=== PATIENT | female | born 1975 | race African-American/Black ===

== ENCOUNTER 2018-09-19 06:15 | Emergency (ER) | payer OTHER ==
[2018-09-19 06:52] VITALS: BP 129/90; PULSE 70; TEMP 98.2; BMI 32.8
--- NOTE | 2018-09-19 07:41 | PDOC ---
History of Present Illness - General Chief Complaint: Headache Stated Complaint: PAIN Time Seen by Provider: 09/19/18 07:04 History Source: Patient Exam Limitations: No Limitations - History of Present Illness Initial Comments: 09/19/18 07:35 42 yo female pmh of sinusitis and strep throat presents to the ED for 2 weeks of non productive cough, sore throat, sneezing, runny nose, facial pain and right ear pain. Pt denies sick contacts, seeing any other physician for her complaints or trying any medications to alleviate symptoms. Denies LYNN, F/C/N/V, body aches, abdominal pain, changes or difficulty with bowel or bladder habits, CP or SOB. Past History - Past Medical History Allergies/Adverse Reactions: Allergies Allergy/AdvReac Type Severity Reaction Status Date / Time No Known Allergies Allergy Verified 09/19/18 06:51 Home Medications: Ambulatory Orders Amox-Tr/K Cl [Augmentin - 875Mg Tablet] 1 tab PO BID 7 Days #14 tablet 09/19/18 COPD: No - Immunization History Immunization Up to Date: Yes - Suicide/Smoking/Psychosocial Hx Smoking History: Never smoked Have you smoked in the past 12 months: No Information on smoking cessation initiated: No Hx Alcohol Use: No Drug/Substance Use Hx: No Review of Systems - Review of Systems Constitutional: No: Chills, Fever HEENTM: Yes: Ear Pain (right), Throat Pain. No: Ear Discharge, Difficulty Swallowing Respiratory: Yes: Cough. No: Shortness of Breath, Productive cough Cardiac (ROS): No: Chest Pain ABD/GI: No: Abdominal Distended, Constipated, Diarrhea, Nausea, Vomiting : No: Burning, Dysuria, Frequency, Flank Pain Neurological: No: Headache *Physical Exam - Vital Signs Last Vital Signs Temp Pulse Resp BP Pulse Ox 98.2 F 70 20 129/90 98 09/19/18 06:49 09/19/18 06:49 09/19/18 06:49 09/19/18 06:49 09/19/18 06:49 - Physical Exam General Appearance: Yes: Nourished, Appropriately Dressed. No: Apparent Distress HEENT: positive: EOMI, TMs Normal (but pain with probe insertion on right), Pharyngeal Erythema, Sinus Tenderness (frontal and ethmoidal ). negative: Tonsillar Exudate, TM Bulging, TM Dull, TM Erythema, Excessive drooling Neck: negative: Tender, Decreased range of motion Respiratory/Chest: positive: Lungs Clear, Normal Breath Sounds. negative: Accessory Muscle Use, Crackles, Rales, Rhonchi, Wheezing Cardiovascular: positive: Regular Rhythm, Regular Rate, S1, S2. negative: Edema , JVD, Murmur Vascular Pulses: Dorsalis-Pedis (R): 3+, Doralis-Pedis (L): 3+ Gastrointestinal/Abdominal: positive: Flat, Soft. negative: Pulsatile Mass, Distended, Guarding Integumentary: positive: Normal Color, Dry, Warm Neurologic: positive: Fully Oriented, Alert, Normal Mood/Affect Moderate Sedation - Procedure Monitoring Vital Signs: Procedure Monitoring Vital Signs Temperature 98.2 F 09/19/18 06:49 Pulse Rate 70 09/19/18 06:49 Respiratory Rate 20 09/19/18 06:49 Blood Pressure 129/90 09/19/18 06:49 O2 Sat by Pulse Oximetry (%) 98 09/19/18 06:49 Medical Decision Making - Medical Decision Making 09/19/18 09:23 pt well appearing NAD AOX3 2 weeks of s/s. Normal vitals Positive pertinent exam findings are pharyngeal erythema and pain with probe in right ear Rapid strep negative Due to during of symptoms Antibiotics sent to pharmacy and pt will follow up with PCP Pt understands and agrees with plan. *DC/Admit/Observation/Transfer Diagnosis at time of Disposition: Sinusitis Qualifiers: Sinusitis location: frontal Chronicity: subacute Qualified Code(s): J01.10 - Acute frontal sinusitis, unspecified - Discharge Dispostion Disposition: HOME Condition at time of disposition: Stable Decision to Admit order: No - Prescriptions Prescriptions: Amox-Tr/K Cl [Augmentin - 875Mg Tablet] 1 tab PO BID 7 Days #14 tablet - Referrals - Patient Instructions Printed Discharge Instructions: DI for Sinusitis Additional Instructions: Please make appointment with your primary care doctor for follow up within the next 24 -48 hours. Return to the ER for new or concerning symptoms including but not limited to: severe headaches, high fevers, difficulty breathing or swallowing. Take the antibiotic Augmentin as prescribed. Thank you - Post Discharge Activity Forms/Work/School Notes: Back to Work
--- NOTE | 2018-09-19 07:45 | PDOC ---
Attending Attestation - Resident Resident Name: Byron Singh - ED Attending Attestation I have performed the following: I have examined & evaluated the patient, The case was reviewed & discussed with the resident, I agree w/resident's findings & plan, Exceptions are as noted - HPI HPI: 09/19/18 08:44 42 years old no significant past medical history presents emergency department with 2 week history of right-sided facial discomfort right ear pain sinus pain with yellow purulent drainage Patient with history of recurrent sinusitis tried conservative measures at homeif improvement pain is moderate to severe persistent concent no associated headache neck stiffness fever Symptoms are persistent concent no exacerbating or alleviating factors. Insert my ROS statement. - Physicial Exam PE: 09/19/18 08:44 Vitals: Triage Vital signs reviewed General Appearance: no acute distress, well nourished well developed, Head: Atraumatic, Eyes: Pupils equal reactive round, extraocular movement intact Ears: Redness to the right TM Nose: Nares patent bilaterally;no nasal congestion Throat: Posterior oropharynx without erythema, mucous membranes moist, Neck: Supple;No Nucal rigidity Chest Wall: Nontender Cardiac: Regular rate and rhythym, no murmurs, no rubs, no gallops, Lungs: Clear to auscultation bilateral, good air movement bilaterally, Abdomen: Soft, non distended, normal bowel sounds, non tender to palpation Extremities: Full range of motion to all extremities, no cyanosis, clubbing, or edema Psych: normal mood, normal affect - Medical Decision Making 09/19/18 08:46 Well-appearing no apparent distress however given unilateral symptoms with no resolution after 2 weeks and now with drainage and facial pain we'll treat with ten-day course of Augmentin and have patient follow up with her primary care provider this week. Findings, need follow-up and strict return instructions discussed with patient.
== END 2018-09-19 08:05 | disposition home or self-care (01) ==
LOC: JER 06:15
DX: J01.10 Acute frontal sinusitis, unspecified (principal)
CPT/HCPCS: 87070; 87880; 99282-25

== ENCOUNTER 2019-01-12 12:54 | Emergency (ER) | payer OTHER ==
[2019-01-12 13:04] VITALS: BP 113/78; PULSE 78; TEMP 98; BMI 29.0
[2019-01-12] MEDS ORDERED: IBUPROFEN 400 MG TABLET (FP) PO ONE ×2 (13:09→13:12)
--- NOTE | 2019-01-12 13:28 | PDOC ---
History of Present Illness - General Chief Complaint: Injury Stated Complaint: LT THUMB INJURY Time Seen by Provider: 01/12/19 13:05 History Source: Patient Exam Limitations: No Limitations Past History - Past Medical History Allergies/Adverse Reactions: Allergies Allergy/AdvReac Type Severity Reaction Status Date / Time No Known Allergies Allergy Verified 09/19/18 06:51 Home Medications: Ambulatory Orders NK [No Known Home Medication] 01/12/19 COPD: No - Immunization History Immunization Up to Date: Yes - Suicide/Smoking/Psychosocial Hx Smoking History: Never smoked Have you smoked in the past 12 months: No Hx Alcohol Use: No Drug/Substance Use Hx: No *Physical Exam - Vital Signs Last Vital Signs Temp Pulse Resp BP Pulse Ox 98 F 78 16 113/78 99 01/12/19 13:01 01/12/19 13:01 01/12/19 13:01 01/12/19 13:01 01/12/19 13:01 - Physical Exam General Appearance: No: Apparent Distress Comments:: 01/12/19 13:24 BUE pulses intact Musculoskeletal: positive: Other (+Swelling of L thumb, pain with abduction and extension of thumb, no deformity of thumb noted, no snuffbox tenderness) Extremity: positive: Normal Capillary Refill Integumentary: positive: Normal Color. negative: Ecchymosis, Bruising Neurologic: positive: Alert, Normal Mood/Affect. negative: Numbness Procedures - Splinting Splint Location: Left: Hand Pre-Proc Neuro Vasc Exam: normal Pre-Made Type: velcro Hand-Made Type: orthoglass Splint Type: Yes: Thumb Spica Post-Proc Neuro Vasc Exam: normal Sling: No Complications: No ED Treatment Course - RADIOLOGY Radiology Studies Ordered: Category Date Time Status FINGER(S) LEFT [RAD] Stat Radiology 01/12/19 13:09 Ordered - Medications Given in the ED: ED Medications Discontinued Medications Generic Name Dose Route Start Last Admin Trade Name Freq PRN Reason Stop Dose Admin Ibuprofen 800 mg 01/12/19 13:09 01/12/19 13:15 Motrin - PO 01/12/19 13:10 800 mg ONCE ONE Administration Medical Decision Making - Medical Decision Making 43 y/o F with no sig pmh presents with L thumb injury after getting her thumb bent backward while working at her job (works at [employer]). Injury occurred 2 days ago. Denies other trauma. Concern for gamekeeper's thumb Plan: L thumb xray to r/o fracture, Motrin 01/12/19 13:26 L thumb xray negative Placed in thumb spica splint due to concern for UCL injury Will refer to ortho 01/12/19 13:53 *DC/Admit/Observation/Transfer Diagnosis at time of Disposition: Thumb injury Qualifiers: Encounter type: initial encounter Laterality: left Qualified Code(s): S69.92XA - Unspecified injury of left wrist, hand and finger(s), initial encounter - Discharge Dispostion Disposition: HOME Condition at time of disposition: Stable Decision to Admit order: No - Referrals Referrals: Chioma Deleon MD [Primary Care Provider] - 2 Days Raymond López MD [Staff Physician] - 2 Days - Patient Instructions Printed Discharge Instructions: Ulnar Collateral Ligament Sprain of Thumb Additional Instructions: Thank you for choosing [facility], [place]. It was a pleasure taking care of you. Your xray was negative for fracture However, there is concern for ligament injury of thumb for which a splint was placed. You were referred to orthopedics for evaluation Take Motrin 600 mg every 6 hours by mouth as needed for mild to moderate pain. Take Motrin with food. Return to the Emergency Department if your symptoms worsen or persist or have other concerning symptoms. - Post Discharge Activity
== END 2019-01-12 14:05 | disposition home or self-care (01) ==
LOC: JERFT 12:54
PROC: 2W3HX1Z Immobilization of Left Thumb using Splint (ICD-10-PCS; principal; 2019-01-12)
DX: S69.82XA Other specified injuries of left wrist, hand and finger(s), initial encounter (principal); X50.1XXA Overexertion from prolonged static or awkward postures, initial encounter; Y93.89 Activity, other specified; Y92.198 Other place in other specified residential institution as the place of occurrence of the external cause; Y99.0 Civilian activity done for income or pay
CPT/HCPCS: 29130; 73140-TC-LT-FY; 99281-25

== ENCOUNTER 2019-01-14 09:25 | Emergency (ER) | payer OTHER ==
[2019-01-14 09:47] VITALS: BP 141/90; PULSE 73; TEMP 98.6; BMI 36.0
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
== END 2019-01-14 10:35 | disposition home or self-care (01) ==
LOC: JERFT 09:25
DX: S00.01XA Abrasion of scalp, initial encounter (principal); S50.811A Abrasion of right forearm, initial encounter; Y04.2XXA Assault by strike against or bumped into by another person, initial encounter; Y93.89 Activity, other specified; Y92.198 Other place in other specified residential institution as the place of occurrence of the external cause; Y99.0 Civilian activity done for income or pay; Y07.59 Other non-family member, perpetrator of maltreatment and neglect
CPT/HCPCS: 99281-25

== ENCOUNTER 2019-05-19 18:25 | Emergency (ER) | payer OTHER ==
[2019-05-19 18:30] VITALS: BP 125/78; PULSE 78; TEMP 98.4; BMI 31.3
--- NOTE | 2019-05-19 18:31 | PDOC ---
Rapid Medical Evaluation Time Seen by Provider: 05/19/19 18:28 Medical Evaluation: Allergies Allergy/AdvReac Type Severity Reaction Status Date / Time No Known Allergies Allergy Verified 01/14/19 09:51 05/19/19 18:28 This patient had a brief in-person evaluation in triage cc: right knee swelling since Sunday s/p dancing. HPI: NAD even and unlabored breathing right knee + tenderness , + swelling orders: xray of right knee This patient will proceed to ED for further evaluation. Discharge Disposition - Diagnosis Knee pain - Referrals - Patient Instructions - Post Discharge Activity
[2019-05-19] MEDS ORDERED: NAPROXEN 500 MG TABLET (FP) PO ONE (19:33)
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
[2019-05-19] MEDS ORDERED: NAPROXEN 500 MG TABLET (FP) ONE (19:39)
== END 2019-05-19 19:41 | disposition home or self-care (01) ==
LOC: JERFT 18:25
PROC: 2W3QX3Z Immobilization of Right Lower Leg using Brace (ICD-10-PCS; principal; 2019-05-19)
DX: S83.8X1A Sprain of other specified parts of right knee, initial encounter (principal); X50.0XXA Overexertion from strenuous movement or load, initial encounter; Y93.41 Activity, dancing; Y92.89 Other specified places as the place of occurrence of the external cause; Y99.8 Other external cause status
CPT/HCPCS: 73562-TC-RT-FY; 99281-25

== ENCOUNTER 2021-02-15 11:32 | Emergency (ER) | payer OTHER ==
[2021-02-15 11:52] VITALS: BP 141/87; PULSE 108; TEMP 98.1; BMI 40.7
== END 2021-02-15 13:16 | disposition home or self-care (01) ==
LOC: JERFT 11:32
DX: D17.1 Benign lipomatous neoplasm of skin and subcutaneous tissue of trunk (principal)
CPT/HCPCS: 71045-TC-FY; 76604; 99283-25

== ENCOUNTER 2022-03-16 12:22 | Emergency (ER) | payer OTHER ==
[2022-03-16 12:46] VITALS: BP 166/97; PULSE 96; TEMP 97.6; BMI 39.1
== END 2022-03-16 14:14 | disposition home or self-care (01) ==
LOC: JER 12:22
DX: J06.9 Acute upper respiratory infection, unspecified (principal)
CPT/HCPCS: 0241U-QW; 99283-25